=== PATIENT | male | born 1990 | race African-American/Black ===

== ENCOUNTER 2017-06-30 15:31 | Emergency (ER) | payer SELFPAY ==
--- NOTE | 2017-06-30 16:44 | RAD ---
FOUR VIEWS OF THE LEFT ELBOW: COMPARISON: None. HISTORY: Left arm pain. FINDINGS: Four views of the left elbow show no evidence of acute fracture or dislocation. Postsurgical change is seen in the radial head. No elbow effusion is seen. There are ossific fragments along the medi al aspect of the elbow. No acute fracture is seen. No perihardware lucency is present. IMPRESSION: Postsurgical changes in the left elbow with ossific fragments along the medial aspect of the elbow. This may represent posttraumatic degenerative change. POS: [facility]
== END 2017-06-30 17:06 | disposition home or self-care (01) ==
LOC: ERS 15:31
DX: M25.522 Pain in left elbow (principal); J45.909 Unspecified asthma, uncomplicated; W03.XXXA Other fall on same level due to collision with another person, initial encounter; Y93.67 Activity, basketball

== ENCOUNTER 2018-02-02 20:10 | Emergency (ER) | payer SELFPAY ==
[2018-02-02] MEDS ORDERED: Ketorolac Tromethamine 60 MG/2 ML VIAL ONE (20:27)
--- NOTE | 2018-02-02 21:10 | RAD ---
CHEST TWO VIEWS: 02/02/2018 PROVIDED CLINICAL HISTORY: Chest pain. FINDINGS: Cardiac and mediastinal silhouette are within normal limits. Lungs appear clear. No pleural fluid o r pneumothorax apparent. IMPRESSION: No evidence for an acute cardiopulmonary process. POS: [facility]
== END 2018-02-02 21:22 | disposition home or self-care (01) ==
LOC: ERS 20:10
DX: R07.89 Other chest pain (principal); J45.909 Unspecified asthma, uncomplicated
CPT/HCPCS: 71046; 93005; 96372; J1885

== ENCOUNTER 2018-03-18 02:04 | Emergency (ER) | payer SELFPAY ==
[2018-03-18] MEDS ORDERED: Lidocaine 1% PF 5 ML VIAL ONE (02:31)
--- NOTE | 2018-03-18 09:10 | RAD ---
RIGHT HAND 3 VIEWS: HISTORY: Pain. Injury. FINDINGS: Comminuted and displaced fracture involving the 5th metacarpal. No intraarticular extension. There is associated soft tissue swelling and deformity. Remaining osseous structures of the right hand are unremarkable. IMPRESSION: Fifth metacarpal fracture. POS: [facility]
--- NOTE | 2018-03-18 09:11 | RAD ---
TWO VIEWS RIGHT HAND: HISTORY: Status post reduction. FINDINGS: Redemonstration of 5th metacarpal fracture. Alignment is improved and near anatomic. IMPRESSION: Near-anatomic alignment. POS: [facility]
== END 2018-03-18 03:10 | disposition home or self-care (01) ==
LOC: ERS 02:04
DX: S62.336A Displaced fracture of neck of fifth metacarpal bone, right hand, initial encounter for closed fracture (principal); J45.909 Unspecified asthma, uncomplicated; W22.03XA Walked into furniture, initial encounter
CPT/HCPCS: 26605; J2001

== ENCOUNTER 2018-03-18 09:00 | Emergency (ER) | payer SELFPAY | END 2018-03-18 10:47 | disposition home or self-care (01) | LOC: ERS 09:00 | DX: S62.306A Unspecified fracture of fifth metacarpal bone, right hand, initial encounter for closed fracture (principal); J45.909 Unspecified asthma, uncomplicated; Z79.891 Long term (current) use of opiate analgesic; Z79.899 Other long term (current) drug therapy; X58.XXXA Exposure to other specified factors, initial encounter | CPT/HCPCS: 29125 ==

== ENCOUNTER 2018-03-20 17:48 | Emergency (ER) | payer SELFPAY ==
--- NOTE | 2018-03-20 19:53 | RAD ---
RIGHT HAND THREE VIEWS: Date: 03-20-18 Time: 5:43 p.m. Comparison: 03-18-18 History: Trauma, pain. FINDINGS: There is a transverse fracture through the proximal shaft of the fifth metacarpal. Distal fracture fr agment is displaced laterally by 2-3 mm. The distal fracture fragment demonstrates prominent volar an gulation, new. No new fractures are seen. IMPRESSION: Fracture of the right fifth metacarpal with new volar angulation. POS: [facility]
== END 2018-03-20 18:49 | disposition home or self-care (01) ==
LOC: ERS 17:48
DX: S62.326A Displaced fracture of shaft of fifth metacarpal bone, right hand, initial encounter for closed fracture (principal); J45.909 Unspecified asthma, uncomplicated; X58.XXXA Exposure to other specified factors, initial encounter
CPT/HCPCS: 29125

== ENCOUNTER 2018-03-31 20:09 | Emergency (ER) | payer SELFPAY ==
[2018-03-31] MEDS ORDERED: Ketorolac Tromethamine 30 MG/ML VIAL ONE (21:15)
--- NOTE | 2018-03-31 22:04 | RAD ---
RIGHT HAND: 03/31/18 Three views. HISTORY: Injury with fracture to fifth metacarpal. COMPARISON: Comparison made to exam of 03/20/18 which revealed a transverse angulated displaced fracture of the mid shaft of the fifth metacarpal. Splint material was in place at that time. FINDINGS: On today's exam, the splint and cast material has been removed. The transverse fracture is again note d. There continues to be angulation and mild displacement. No significant callus or healing is noted. IMPRESSION: Fracture fifth metacarpal without evidence of significant healing. POS: [facility]
== END 2018-03-31 22:05 | disposition home or self-care (01) ==
LOC: ERS 20:09
DX: S62.326A Displaced fracture of shaft of fifth metacarpal bone, right hand, initial encounter for closed fracture (principal); J45.909 Unspecified asthma, uncomplicated; Z79.899 Other long term (current) drug therapy; W22.8XXA Striking against or struck by other objects, initial encounter
CPT/HCPCS: 29125; 96372; J1885

== ENCOUNTER 2018-06-18 01:48 | Emergency (ER) | payer SELFPAY ==
[2018-06-18] MEDS ORDERED: Ketorolac Tromethamine 30 MG/ML VIAL ONE (02:53)
[2018-06-18] MEDS ORDERED: Lidocaine 1% (PF) 30 ML VIAL ONE (02:53)
== END 2018-06-18 04:14 | disposition home or self-care (01) ==
LOC: ERS 01:48
DX: S01.311A Laceration without foreign body of right ear, initial encounter (principal); Y04.0XXA Assault by unarmed brawl or fight, initial encounter
CPT/HCPCS: 12011; 96372; J1885; J2001

== ENCOUNTER 2018-07-03 10:45 | Emergency (ER) | payer SELFPAY ==
--- NOTE | 2018-07-03 12:33 | RAD ---
LEFT FOOT 3 VIEWS: HISTORY: Injury and pain. COMPARISON: None. FINDINGS: Lisfranc alignment is maintained. Joint space is preserved. There are degenerative changes in the a rticulation of the 1st metatarsal, 2nd metatarsal with the adjacent cuneiform bones. 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 No fractures. POS: [facility]
== END 2018-07-03 12:01 | disposition home or self-care (01) ==
LOC: ERS 10:45
DX: S93.602A Unspecified sprain of left foot, initial encounter (principal); X58.XXXA Exposure to other specified factors, initial encounter; Y93.66 Activity, soccer

== ENCOUNTER 2018-10-21 15:55 | Emergency (ER) | payer SELFPAY ==
[2018-10-21] MEDS ORDERED: Lidocaine 1% w/Epinephrine 1:100K 20 ML VIAL ONE (16:12)
== END 2018-10-21 17:31 | disposition home or self-care (01) ==
LOC: ERS 15:55
DX: S01.511A Laceration without foreign body of lip, initial encounter (principal); S01.81XA Laceration without foreign body of other part of head, initial encounter; S03.2XXA Dislocation of tooth, initial encounter; W22.8XXA Striking against or struck by other objects, initial encounter
CPT/HCPCS: 12011; 40650; J2001

== ENCOUNTER 2018-10-26 15:03 | Emergency (ER) | payer SELFPAY ==
[2018-10-26] MEDS ORDERED: Bacitracin Zinc 1 Packet ONE (15:20)
== END 2018-10-26 15:33 | disposition home or self-care (01) ==
LOC: ERS 15:03
DX: S01.512D Laceration without foreign body of oral cavity, subsequent encounter (principal); X58.XXXA Exposure to other specified factors, initial encounter